=== PATIENT | female | born 1970 | race Two or more races ===

== ENCOUNTER 2025-03-18 19:24 | Emergency (ER) | payer MEDICAID, OTHER ==
[~2025-03-18] VITALS: Ht 152.4 cm; Wt 82.3 kg
[2025-03-18 19:27] VITALS: BP 151/101; PULSE 99; RESP 20; TEMP 98.9; O2SAT 96
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
[2025-03-18] MEDS ORDERED: NAPR-957 PO (22:08)
[2025-03-18] MEDS ORDERED: CYCL-837 PO (22:08)
[2025-03-19] MEDS: NAPROXEN 500 MG TAB PO ONE (00:40)
== END 2025-03-19 00:40 | disposition home or self-care (01) ==
LOC: EDBD 19:24 → ER 19:24
DX: M54.2 Cervicalgia (principal); I10 Essential (primary) hypertension; F41.9 Anxiety disorder, unspecified; Z79.899 Other long term (current) drug therapy; V43.52XA Car driver injured in collision with other type car in traffic accident, initial encounter; Y93.I9 Activity, other involving external motion; Y92.488 Other paved roadways as the place of occurrence of the external cause; Y99.8 Other external cause status